=== PATIENT | female | born 2000 | race Caucasian/White ===

== ENCOUNTER 2025-09-13 21:32 | Emergency (ER) | payer BC ==
[2025-09-13] MEDS ORDERED: Sodium Chloride 0.9% 10 ML Syringe FLUSH PRN (22:00)
[2025-09-13] MEDS ORDERED: Naloxone 0.4 MG/ML SDV IVPUSH PRN ×2 (22:02→23:37)
[2025-09-13] MEDS: Ketorolac 30 MG/ML SDV IVPUSH ONE (22:25)
[2025-09-13 22:28] LABS: BASOPHILS ABSOLUTE AUTO 0.1 K/mm3 (0.0-0.2); BASOPHILS PERCENT AUTO 0.6 % (0.0-1.0); EOSINOPHILS ABSOLUTE AUTO 0.2 K/mm3 (0.0-0.4); EOSINOPHILS PERCENT AUTO 1.3 % (0.0-6.0); IMMATURE GRAN ABSOLUTE AUTO 0.07 K/mm3 (0.00-0.05); IMMATURE GRAN PERCENT AUTO 0.5 % (0.0-0.4); LYMPHOCYTES ABSOLUTE AUTO 3.3 K/mm3 (1.0-4.8); LYMPHOCYTES PERCENT AUTO 23.5 % (24.0-44.0); MEAN PLATELET VOLUME 8.8 fl (9.4-12.3); MONOCYTES ABSOLUTE AUTO 0.7 K/mm3 (0.0-0.8); MONOCYTES PERCENT AUTO 5.2 % (0.0-8.0); NEUTROPHILS ABSOLUTE AUTO 9.7 K/mm3 (1.8-7.7); NEUTROPHILS PERCENT AUTO 68.9 % (41.0-71.0); NRBC ABSOLUTE 0.00 (0.00-0.02); NRBC PERCENT 0.0 % (0.0-0.2); PLATELET COUNT,PLT 360 K/mm3 (150-400); RED BLOOD CELL COUNT 4.36 M/mm3 (4.10-5.30); WHITE BLOOD CELL COUNT,WBC 14.07 K/mm3 (3.9-11.3)
[2025-09-13 22:57] LABS: A/G RATIO 0.7 (1-2); ALANINE AMINOTRANSFERASE,ALT 35.0 U/L (14-59); ASPARTATE AMNIOTRANSFERASE,AST 16.0 U/L (15-37); BILIRUBIN TOTAL 0.3 mg/dL (0.2-1.0); BLOOD UREA NITROGEN,BUN 17.0 mg/dL (7-18); CARBON DIOXIDE,CO2 29.0 mEq/L (21-32); CHLORIDE,CL 106.0 mEq/L (98-107); CREATININE 1.2 mg/dL (0.55-1.02); EST CRCL DRUG DOSING (CG) 65.92 mL/min; ESTIMATED GFR 64.0 mL/min (>60); GLUCOSE RANDOM 110.0 mg/dL (70-99); POTASSIUM,K 4.1 mEq/L (3.5-5.1); PROTEIN TOTAL,TP 7.0 g/dl (6.4-8.2); SODIUM,NA 142.0 mEq/L (136-145)
[2025-09-13 23:01] LABS: LACTIC ACID 1.0 mmol/L (0.4-2.0)
[2025-09-14] MEDS: Acetaminophen/oxyCODONE 325-5 MG Tab PO ONE (02:04)
== END 2025-09-14 02:45 | disposition home or self-care (01) ==
LOC: JD.ED 21:32
DX: N61.0 Mastitis without abscess (principal)
CPT/HCPCS: 36415; 80053; 83605; 84703; 85025; 96365; 96366; 96375; 99283; A9270; J1885; J2270; J3373; J7030; J7040; J1171